=== PATIENT | female | born 1990 | race Caucasian/White ===

== ENCOUNTER 2025-06-24 18:40 | Inpatient (IN) | payer MEDICAID, SELFPAY ==
[2025-06-24] VITALS (22 sets, daily range): BP systolic 130–174; BP diastolic 85–105; PULSE 77–93; RESP 16–18; TEMP 36.4–36.7; BMI 34.7
[2025-06-24 20:01] LABS: Hematocrit 31.5 % (36-47); Hemoglobin 10.20 g/dL (11.27-16.99); Mean Corpuscular HGB Conc 32.4 g/dL (30-55); Mean Corpuscular Hemoglobin 26.2 pg (27-33); Mean Corpuscular Volume 80.8 fl (85-98); Nucleated Red Blood Cells % 0 %; Platelet Count 264 10^3/cmm (157-399); Red Blood Count 3.90 10^6/uL (3.85-5.65); White Blood Count 8.68 10^3/uL (3.29-11.43)
[2025-06-24] MEDS: HYDROcodone-acetaminophen 5-325 mg Tablet 1 TAB PO (20:33)
[2025-06-24 20:59] LABS: Glucose Urine UA Negative (Normal); Nitrate Urine Negative (Negative); Specific Gravity, Urine 1.023 (1.005-1.030)
[2025-06-24 21:08] LABS: Alanine Aminotransferase 9 U/L (0-33); Albumin Level 3.7 g/dL (3.5-5.2); Alkaline Phosphatase 122 U/L (35-105); Anion Gap 16.9 (5-19); Aspartate Amino Transferase 16 U/L (0-32); Blood Urea Nitrogen 12 mg/dL (6-20); Calcium 8.6 mg/dL (8.5-10.5); Carbon Dioxide 20 mmol/L (22-29); Chloride 100 mmol/L (98-107); Creatinine Clr Calc Pharmacy 106.7838; Globulin 2.8 g/dL (1.3-4.6); Glucose 103 mg/dL (65-115); Osmolality Calculated 276 mOsm/kg (285-295); Potassium 3.9 mmol/L (3.5-5.1); Sodium 133 mmol/L (136-145); Total Protein 6.5 g/dL (6.6-8.7); Uric Acid 7.4 mg/dL (2.4-5.7)
[2025-06-24 21:08] LABS: UPRO/UCREAT Ratio 0.11 mg/mg CR
[2025-06-24 21:16] LABS: UA Manual Slide Review YES
[2025-06-24 21:17] LABS: Add Urine Microscopic? YES
[2025-06-25] VITALS (149 sets, daily range): BP systolic 125–182; BP diastolic 75–111; PULSE 71–142; RESP 16; TEMP 36.8; O2SAT 82–100
--- NOTE | 2025-06-25 06:21 | ANES.PREANE2 ---
Pre-Anesthetic Assessment Height/Weight: Height 1.6 m Weight 88.904 kg Temp Pulse Resp BP Pulse Ox O2 Del Method 98.2 F 96 16 164/78 82 L Room Air 06/25/25 04:02 06/25/25 06:15 06/25/25 04:02 06/25/25 06:14 06/25/25 06:15 06/24/25 19:29 Preop Diagnosis: iup labor epidural Familial anesthetic complications: none Was Beta Nilam taken within 24 hours: N/A Was Clonidine taken within 24 hours: N/A Social No alcohol and No tobacco Exam alert, oriented x 3 and clear to auscultation bilaterally Airway Mallampati: Class II Dentition: full History/ROS No significant history except as noted Pulmonary None reported CV/HEM None reported None reported Hepatic None reported GI None reported Metabolic None reported Musc/skel None reported Neuropsych None reported Anesthetic Plan ASA status: 2 Anesthesia: Anesthesia Evaluation and Regional (specify below) Medications/Allergies Home Medications ?Medication ?Instructions ?Recorded ?Confirmed ?Last Taken ?Type ondansetron 4 mg disintegrating 1 mg PO Q6H PRN Nausea 06/24/25 06/24/25 Unknown History tablet vit with calcium-iron 1 tab PO DAILY 06/24/25 06/24/25 Unknown History fum-folic acid 60 mg-0.8 mg tablet Allergies Allergy/AdvReac Type Severity Reaction Status Date / Time Penicillins Allergy Unknown Verified 06/24/25 20:22 Sulfa (Sulfonamide Allergy Unknown Verified 06/24/25 20:22 Antibiotics) Current Medications Generic Name Dose Route Start Last Admin Trade Name Freq PRN Reason Stop Dose Admin Sodium Chloride 1,000 mls @ 999 mls/hr 06/24/25 19:51 06/25/25 04:52 Sodium Chloride 0.9% IV 999 mls/hr .Q1H1M PRN Administration Per L&D Rescitation Protocol Sodium Chloride 1,000 mls @ 999 mls/hr 06/25/25 05:09 06/25/25 05:52 Sodium Chloride 0.9% IV 999 mls/hr .Q1H1M PRN Administration See label comments PFSH Anesthesia Female Reproductive History : 2 Data Anesthesia 06/24/25 19:50 06/24/25 19:50 Short CBC 06/24/25 Range/Units 19:50 WBC 8.68 (3.29-11.43) 10^3/uL Hgb 10.20 L (11.27-16.99) g/dL Hct 31.5 L (36-47) % MCV 80.8 L (85-98) fl Plt Count 264 (157-399) 10^3/cmm Neut % (Auto) 59.0 % Neut # (Auto) 5.11 (1.8-7.7) 10^3/uL BMP 06/24/25 19:50 Sodium 133 L Potassium 3.9 Chloride 100 Carbon Dioxide 20 L BUN 12 Creatinine 0.8 Glucose 103 Calcium 8.6 Liver Function 06/24/25 Range/Units 19:50 Total Bilirubin 0.2 (0.15-1.2) mg/dL AST 16 (0-32) U/L ALT 9 (0-33) U/L Alkaline Phosphatase 122 H (35-105) U/L Albumin 3.7 (3.5-5.2) g/dL Urine 06/24/25 Range/Units 20:35 Urine Color Yellow (Yellow) Urine Appearance Clear (CLEAR) Urine pH 6.0 (5-7) Ur Specific Mellott 1.023 (1.005-1.030) Urine Protein Trace A (Negative) Urine Glucose (UA) Negative (Normal) Urine Ketones Trace (Negative) Urine Nitrate Negative (Negative) Urine Bilirubin Negative (Negative) Ur Leukocyte Esterase Negative (Negative) Urine RBC Rare (0-2) /hpf Urine WBC 0-4 H (0-5) /hpf Blood Bank 06/24/25 19:15 Blood Type A Positive Rho(D) Type Rh positive Antibody Screen Negative Anesthesia Procedures Epidural Time Out Performed: Yes Consents Signed: Procedure Consent Consent: requested by attending/covering physician, from patient, risks and benefits reviewed and patient agrees to proceed Lumbar Level: L4-L5 Epidural position: sitting Epidural procedure: sterile prep of area, 1% lidocaine to numb the area, 18 g needle, negative for paresthesia passed, neg for paresthesia, test dose given, 1.5% xylocaine 1:200k epi, 0.2% Ropivacaine bolus ml (5), placed PCEA, no systemic response, sterile dressing applied, L.U.D. no apparent complications and 0.2% Ropiavacaine @ mls/hr (13) Additional Comments: stepan 6cm, catheter easily threaded to 5cm in the space. VS monitored throughout and remained stable. pt educated on [facility]SO[facility]ER
[2025-06-25] MEDS: ROPivacaine premix 200 MG/100 ML PREMIX 13 MG EPIDURAL (06:24)
--- NOTE | 2025-06-25 08:21 | P.OP_ITS ---
Operative Report Date of procedure: June 25, 2025 Pre-op diagnosis: 34-year-old 2 para 1-0-0-1 at 40 weeks estimated gestational age with nonreassuring heart tones Post-op diagnosis: Status post low-transverse section Procedure done: Low-transverse section Specimens removed/disposition: 1. Male infant with weight of 9 pounds 13 ounces and Apgars of 3 7 and 9 2. Placenta with a three-vessel cord delivered intact Surgeon: Tristen Ward MD Estimated blood loss (mL): 1,500 Complications: None Brief History: The patient was brought in for induction last night due to having elevated blood pressures in the office. Thankfully, her preeclamptic profile was negative. And while she did have an occasional severe blood pressure, they are mostly in the normal to mildly elevated range. She is induced with Cytotec 25 mcg x 2. She continued to progress. She had spontaneous rupture membranes. Meconium was noted. The baby again having recurrent deep prolonged decelerations. She progressed to 9 cm. Her cervix was stretchy and it made the decision to have her push due to the pliability of the cervix. After pushing through several contractions, the cervix resolved. The baby continued to have deep decelerations. The baby's head was at +1 to +2 station. Decision was made to attempt a vacuum. The vacuum was applied during 2 contractions. Despite application of the vacuum there is minimal movement of the baby. The baby continued to have deep decelerations. The decision was made to proceed with a section. The epidural was dosed up. The patient was quickly brought back to the OR where the procedure was performed. Procedure: The patient was brought back to the operating room where she was prepped and draped in usual sterile fashion. The epidural was found to be adequate.. A lower transverse skin incision was then made with a #10 blade. I then dissected down to the underlying subcutaneous tissue until arriving at the prerectal fascia. The fascia was then nicked with the scalpel bilaterally. The fascial incisions were then carried laterally with Mullins scissors. Attention was then turned to the superior aspect of the incision which was grasped with kochers and tented up away from the underlying rectus abdominis muscles. The muscles were then dissected away from the fascia manually, and later with Mullins scissors. Attention was then turned to the inferior aspect of the incision, and the fascia was dissected away from the underlying muscle in similar fashion. The rectus abdominis muscles were then spread manually. The peritoneum was entered manually. Excellent visualization of the uterus was noted. A lower transverse uterine incision was then made with a #10 blade. Upon arriving at the intrauterine cavity, the uterine incision was then extended manually. The was noted to be in vertex position. The baby's head was deep in the pelvis and required assistance with a nurse pushing up from the vagina on the baby's head. After the assistance of the nurse, the baby's head was delivered without difficulty. Meconium was noted. There was no nuchal cord. The baby was noted to be floppy. the cord was quickly cut and clamped. The baby was then handed to Dr. Clark and assisting nurse. The placenta was removed intact. The uterus was externalized. The intrauterine cavity was cleansed of any remaining debris. The uterine incision was reapproximated in 2 layers. The first layer was performed with 0 Vicryl in a running locked stitch. The second layer was an imbricating stitch also using 0 Vicryl. The uterus was replaced into the abdomen. The peritoneum was then irrigated with warm saline. I reexamined the uterine incision and found it to be hemostatic. The rectus abdominis muscles were then reapproximated using 0 Vicryl in a running stitch. The fascia was then reapproximated using 0 Vicryl in running stitch. The subcutaneous tissue was then reapproximated using 0 Vicryl in a running stitch. The skin was re- approximated using georgina. A sterile dressing was placed. All counts were cor rect x2. Both the mother and baby were in stable condition.
[2025-06-25] MEDS: oxytocin 30 UNIT/500 ML BAG 600 UNIT IV (08:25)
[2025-06-25] MEDS: ondansetron 2 mg/ML SDV 2 mL 4 MG IVP (09:38)
[2025-06-25 16:33] LABS: Hematocrit 25.7 % (36-47); Hemoglobin 8.20 g/dL (11.27-16.99); Mean Corpuscular HGB Conc 31.9 g/dL (30-55); Mean Corpuscular Hemoglobin 26.1 pg (27-33); Mean Corpuscular Volume 81.8 fl (85-98); Platelet Count 255 10^3/cmm (157-399); Red Blood Count 3.14 10^6/uL (3.85-5.65); White Blood Count 14.36 10^3/uL (3.29-11.43)
[2025-06-25] MEDS: ferrous sulfate EC 325 mg Tablet PO (17:08)
[2025-06-25] MEDS: magnesium sulfate premix 4 GM/100 ML PREMIX IV (20:35)
[2025-06-25] MEDS: NIFEdipine ER (24 hr) 30 mg Tablet PO (20:39)
[2025-06-25] MEDS: magnesium sulfate premix 20 GM/500 ML BAG IV (20:57)
[2025-06-26] VITALS (25 sets, daily range): BP systolic 134–169; BP diastolic 81–107; PULSE 87–142
[2025-06-26 04:40] LABS: Hematocrit 25.3 % (36-47); Hemoglobin 8.00 g/dL (11.27-16.99); Mean Corpuscular HGB Conc 31.6 g/dL (30-55); Mean Corpuscular Hemoglobin 26.3 pg (27-33); Mean Corpuscular Volume 83.2 fl (85-98); Platelet Count 261 10^3/cmm (157-399); Red Blood Count 3.04 10^6/uL (3.85-5.65); White Blood Count 9.28 10^3/uL (3.29-11.43)
[2025-06-26] MEDS: PRENATAL VIT NO.130/IRON/FOLIC 1 EACH TABLET PO (05:53)
[2025-06-26] MEDS: magnesium sulfate premix 20 GM/500 ML BAG IV (06:38)
--- NOTE | 2025-06-26 08:00 | ANE.PACU2 ---
Inpatient post-anesthesia follow up: Airway intact: Yes Vital signs: Temperature 98.2 F Pulse Rate 142 Respiratory Rate 16 Blood Pressure 141/93 Pulse Oximetry 97 Oxygen Delivery Me thod Room Air Oxygen Flow Rate Fraction of Inspir ed Oxygen Hydration adequate: Yes Nausea and vomiting: No Pain level: 1 Mental status: Baseline Additional Comments: Epidural --> Epidural Start/End: Epidural Start Date: 06/25/25 Epidural Start Time: 05:45 Epidural End Date: 06/25/25 Epidural End Time: 08:13
--- NOTE | 2025-06-26 09:41 | PM.OBGYDC ---
Discharge Providers [facility] Date of Admission: 06/24/25 18:40 Date of Discharge: 06/26/25 Attending Provider at Admission: Tristen Ward MD Attending Provider at Discharge: Tristen Ward MD Reason for Visit Reason for Visit: IOL Hospital Course Hospital Course The patient is a 34-year-old who presented to the OB department for induction due to gestational hypertension. She is having a routine checkup in the office when she is noted to have multiple elevated blood pressures. Due to her gestational age, the benefits of inductions outweigh the risks. A preeclamptic workup was performed and she was found to be negative. She did continue to demonstrate mild elevation of blood pressures during her hospital stay. The induction was initiated with Cytotec 25 mcg x 2. Spontaneous rupture membranes occurred. An epidural was placed. Unfortunately, heart tones began demonstrating deep, prolonged decelerations. The baby was having good variability in between decelerations. They improved somewhat with shifting of position. We pushed with the patient and I even used a vacuum for 2 contractions. Despite that, we saw minimal change in the position of the baby, and it continued to have deep decelerations. As a result the decision was made to proceed with a section. The was remarkable for greater than average blood loss. I also did require assistance from the nurse putting pressure on the baby's head to push up out of the pelvis. Otherwise the procedure was smooth. Post , the patient did fairly well. She did begin to spike severe blood pressures about 12 hours after the section. She was placed on magnesium until about 24 hours post . Her urine output was exceptional during that time. She had no other symptoms of preeclampsia, other than potentially a headache. She does have a history of chronic headaches. She was placed on Procardia XL. Ultimately her dose was ramped up to 90 mg to help control her blood pressure. The patient was highly motivated to leave the hospital due to her baby being in [place], and the decision was made for her to go home this afternoon after her blood pressures improved.Her pain was well-controlled. She is breast-feeding well. There are no further concerns. Information Peripartum Data: Infant Delivery Method: Physical Exam Narrative: She is in no acute distress Lungs are clear auscultation bilaterally Her heart has a regular rate and rhythm Her fundus is below the umbilicus and firm Her dressing is clean, dry and intact Her extremities have trace edema Urinary Catheter Management: Case Latex Free: Cath Placed During This Visit: yes Reason for Continuing Indwelling Catheter: Accurate Measurement of Urinary Output in Critically Ill Patients Urinary Catheter Date of Insertion: 06/25/25 Urinary Catheter Time of Insertion: 07:27 Discharge Data Studies Completed and Pending Pending at discharge Category Date Time Status High Risk PP Hemorrhage Stat Lab 06/25/25 10:01 Received Laboratory Results WBC 9.28 10^3/uL (3.29-11.43) 06/26/25 04:18 RBC 3.04 10^6/uL (3.85-5.65) L 06/26/25 04:18 Hgb 8.00 g/dL (11.27-16.99) L 06/26/25 04:18 Hct 25.3 % (36-47) L 06/26/25 04:18 MCV 83.2 fl (85-98) L 06/26/25 04:18 MCH 26.3 pg (27-33) L 06/26/25 04:18 MCHC 31.6 g/dL (30-55) 06/26/25 04:18 RDW 13.3 % (12.1-15.1) 06/26/25 04:18 Plt Count 261 10^3/cmm (157-399) 06/26/25 04:18 MPV 10.8 fL (7.4-10.4) H 06/26/25 04:18 Neut % (Auto) 59.0 % 06/24/25 19:50 Lymph % (Auto) 29.5 % 06/24/25 19:50 Traill % (Auto) 9.4 % 06/24/25 19:50 Eos % (Auto) 1.6 % 06/24/25 19:50 Baso % (Auto) 0.2 % 06/24/25 19:50 Neut # (Auto) 5.11 10^3/uL (1.8-7.7) 06/24/25 19:50 Lymph # (Auto) 2.6 10^3/uL (0.8-4.8) 06/24/25 19:50 Traill # (Auto) 0.8 10^3/uL (0.2-0.9) 06/24/25 19:50 Eos # (Auto) 0.1 10^3/uL (0.0-0.8) 06/24/25 19:50 Baso # (Auto) 0.0 10^3/uL (0.0-0.1) 06/24/25 19:50 Nucleated RBC % (auto) 0 % 06/24/25 19:50 Nucleated RBCs # 0.0 /100WBC 06/24/25 19:50 Sodium 133 mmol/L (136-145) L 06/24/25 19:50 Potassium 3.9 mmol/L (3.5-5.1) 06/24/25 19:50 Chloride 100 mmol/L (98-107) 06/24/25 19:50 Carbon Dioxide 20 mmol/L (22-29) L 06/24/25 19:50 Anion Gap 16.9 (5-19) 06/24/25 19:50 BUN 12 mg/dL (6-20) 06/24/25 19:50 Creatinine 0.8 mg/dL (0.5-0.9) 06/24/25 19:50 GFR Calculation 83.1 mL/min (90-130) L 06/24/25 19:50 Glucose 103 mg/dL (65-115) 06/24/25 19:50 Calculated Osmolality 276 mOsm/kg (285-295) L 06/24/25 19:50 Uric Acid 7.4 mg/dL (2.4-5.7) H 06/24/25 19:50 Calcium 8.6 mg/dL (8.5-10.5) 06/24/25 19:50 Total Bilirubin 0.2 mg/dL (0.15-1.2) 06/24/25 19:50 AST 16 U/L (0-32) 06/24/25 19:50 ALT 9 U/L (0-33) 06/24/25 19:50 Alkaline Phosphatase 122 U/L (35-105) H 06/24/25 19:50 Lactate Dehydrogenase 211 U/L (135-214) 06/24/25 19:50 Total Protein 6.5 g/dL (6.6-8.7) L 06/24/25 19:50 Albumin 3.7 g/dL (3.5-5.2) 06/24/25 19:50 Globulin 2.8 g/dL (1.3-4.6) 06/24/25 19:50 Urine Color Yellow (Yellow) 06/24/25 20:35 Urine Appearance Clear (CLEAR) 06/24/25 20:35 Urine pH 6.0 (5-7) 06/24/25 20:35 Ur Specific Suches 1.023 (1.005-1.030) 06/24/25 20:35 Urine Protein Trace (Negative) A 06/24/25 20:35 Urine Glucose (UA) Negative (Normal) 06/24/25 20:35 Urine Ketones Trace (Negative) 06/24/25 20:35 Urine Blood Negative (Negative) 06/24/25 20:35 Urine Nitrate Negative (Negative) 06/24/25 20:35 Urine Bilirubin Negative (Negative) 06/24/25 20:35 Urine Urobilinogen 1.0 mg/dL (Negative) 06/24/25 20:35 Ur Leukocyte Esterase Negative (Negative) 06/24/25 20:35 Urine RBC Rare /hpf (0-2) 06/24/25 20:35 Urine WBC 0-4 /hpf (0-5) H 06/24/25 20:35 Ur Squamous Epith Cells 0-4 /hpf (0-5) H 06/24/25 20:35 Ur Transition Epith Cell 0-4 /hpf 06/24/25 20:35 Amorphous Sediment Not Reportable 06/24/25 20:35 Urine Bacteria Trace /hpf (NONE) 06/24/25 20:35 Urine Mucus 1+ /hpf 06/24/25 20:35 U Random Total Protein 23 mg/dL 06/24/25 20:35 Urine Creatinine 204 mg/dL (28-217) 06/24/25 20:35 Protein/Creatinin Ratio 0.11 mg/mg CR 06/24/25 20:35 Blood Type A Positive 06/24/25 19:15 Rho(D) Type Rh positive 06/24/25 19:15 Antibody Screen Negative 06/24/25 19:15 Vitals Last Vital Signs Temp 98.2 F 06/25/25 04:02 Pulse 114 H 06/26/25 09:38 Resp 16 06/25/25 04:02 BP 151/85 06/26/25 09:38 Pulse Ox 97 06/25/25 14:13 O2 Del Method Room Air 06/24/25 19:29 Results Labs OB ([facility]): Blood Type A Positive 06/24/25 Antibody Screen Negative 06/24/25 Hct, (36-47) 25.3 % L Today Hgb, (11.27-16.99) 8.00 g/dL L Today Rho(D) Type Rh positive 06/24/25 Plt Count, (157-399) 261 10^3/cmm Today Uric Acid, (2.4-5.7) 7.4 mg/dL H 06/24/25 Discharge Plan Discharge Patient Disposition: Home Condition: Stable Prescriptions: New hydrocodone-acetaminophen 5-325 mg Tablet 1 tab PO Q6H PRN (Reason: Moderate To Severe Pain) Qty: 28 0RF docusate sodium 100 mg Capsule 100 mg PO BID Qty: 14 0RF ibuprofen 800 mg Tablet 800 mg PO TID PRN (Reason: Pain (Scale Score 4-6)) Qty: 45 0RF nifedipine 90 mg tablet extended release 90 mg PO DAILY Qty: 30 1RF Continued vit-iron fum-folic ac 60-0.8 mg Tablet 1 tab PO DAILY Discontinued ondansetron 4 mg tablet,disintegrating 1 mg PO Q6H PRN (Reason: Nausea) Discharge Order = DC NOW: Discharge Order (Routine); Ordered 06/26/25 Ordered By: Tristen Ward Referrals: Tristen Ward MD [Physician, Family Practice] - 06/29/25 9:50 am Referral Note: Your appointment with Dr. Ward is scheduled for Saturday the 29 of June @9:50am. Discharge Diet: Usual diet Discharge Activity: Limit activity as instructed Patient Instructions: Depression (DC), Bleeding (DC), Preeclampsia and Eclampsia After Delivery (GEN), Hemorrhage (DC), OB - Sylvia/Carmelo, OB Discharge Report, OB Food/Drug Interaction Guide, OB Care at Home, Opioid Safety, Patient Portal & Conrad Instructions Discharge Attestations [facility] Time Spent in Discharge Care*: greater than 30 min Coding Level of Care Code Acute Code for Chg Fwd
[2025-06-26] MEDS: HYDROcodone-acetaminophen 5-325 mg Tablet PO (11:33)
[2025-06-26] MEDS: NIFEdipine ER (24 hr) 30 mg Tablet PO (13:04)
--- NOTE | 2025-06-26 14:41 | PC.NURSE ---
THIS COMMUNITY LIVING COACH CALLED IN SCRIPTS TO [facility], DR. JACKSON SENT IN SCRIPT FOR HYDROS. THIS COMMUNITY LIVING COACH TALKED WITH VICKEY AT [facility] AND CONFIRMED THAT HYDRO SCRIPT WAS THERE AND I CALLED IN THE REST. [facility]S MOM WENT THERE TO PICK THEM UP AND WAS TOLD THAT THEY DO NOT HAVE PHARMACIST ON THE WEEKENDS.
--- NOTE | 2025-06-26 15:21 | PM.OPHPUD ---
Labor & Delivery H&P Update Date of Procedure: June 26, 2025 Date H&P Performed: 06/24/25 Changes to previous documentation: The patient arrived to the hospital with elevated blood pressures during routine office visit. Admission Diagnosis: 34-year-old 2 para 1-0-0-1 at 40 weeks estimated gestational age presenting with gestational hypertension Preop diagnosis: iup Planned procedure: Operation Date: 06/25/25 07:20 Proposed Procedures p Section(Not Applicable) - Tristen Ward MD Other information: The patient is a 34-year-old female who has had a relatively unremarkable . She is transferring care to [place] in the second trimester. She has had consistent care since that time. Related Problem List Diagnoses 1. 39 weeks gestation of : 2. Gestational hypertension: A&P Assessment and plan 1. 39 weeks gestation of : We will proceed with induction of patient. Will monitor for signs of progression of hypertension to preeclampsia or similar pathology. Status: Acute 2. Gestational hypertension: Status: Acute PDMP PDMP Reviewed: Last Reviewed 06/26/25 10:35 EDT by Tristen Ward MD
[2025-06-28 10:10] LABS: High Risk PP Hemorrhage BBK Notified
== END 2025-06-26 15:55 | disposition home or self-care (01) | DRG 788 ==
LOC: OPOB 18:45 → OBGYN 18:46 → OPOB 18:46 → OBGYN 18:47
PROVIDERS: Admitting Provider Family Medicine; Visit Provider Family Medicine
PROC: 10D00Z1 Extraction of Products of Conception, Low, Open Approach (ICD-10-PCS; CPT 59514; principal; 2025-06-25 07:20)
DX: O13.4 Gestational [pregnancy-induced] hypertension without significant proteinuria, complicating childbirth (principal); O76 Abnormality in fetal heart rate and rhythm complicating labor and delivery; O77.0 Labor and delivery complicated by meconium in amniotic fluid; Z3A.40 40 weeks gestation of pregnancy; Z37.0 Single live birth
CPT/HCPCS: 36415; 51702; 59025; 59409; 80053; 81001; 82570; 83615; 84156; 84550; 85025; 85027; 86850; 86900; 96374; 96376; 99211; J1885; J2274; J2405; J2590; J2795; J3010; J3475; J7030; J7121; J9999